=== PATIENT | male | born 1970 | race Two or more races ===

== ENCOUNTER 2020-02-21 16:53 | Inpatient (IN) | payer BC ==
[~2020-02-21] VITALS: Ht 165.1 cm; Wt 90.3 kg
[2020-02-21 16:55] VITALS: BP 144/78
[2020-02-21] MEDS: DOCUSATE SODIUM 100 MG CAPSULE PO SCH (20:30)
[2020-02-21] MEDS: ATORVASTATIN CALCIUM 40 MG TABLET PO SCH (20:30)
[2020-02-21] MEDS: ChlorproMAZINE HCL 25 MG TABLET PO PRN (20:30)
[2020-02-21] MEDS: BACLOFEN 10 MG TABLET PO SCH (20:30)
[2020-02-21] MEDS: SENNA 187 MG TABLET PO SCH (20:30)
[2020-02-21] MEDS: ENOXAPARIN SODIUM 30 MG/0.3 ML PF SYRINGE SQ SCH (20:32)
[2020-02-21] MEDS: ACETAMINOPHEN 325 MG TABLET PO PRN (22:29)
[2020-02-21] MEDS: MELATONIN 5 MG TABLET PO PRN (22:34)
[2020-02-22] VITALS: BP 140/82
[2020-02-22] MEDS: ACETAMINOPHEN 325 MG TABLET PO PRN ×2 (05:29→20:09)
[2020-02-22] MEDS: FAMOTIDINE 20 MG TABLET PO SCH ×2 (05:29→16:16)
[2020-02-22 07:12] LABS: BASOPHILS % (AUTO) 0.5 % (0.0-2.0); EOSINOPHILS % (AUTO) 2.1 % (1.0-6.0); HEMATOCRIT 39.9 % (41-53); HEMOGLOBIN 13.6 g/dL (13.5-17.5); LYMPHOCYTES # (AUTO) 2.5 K/uL (1.0-4.8); LYMPHOCYTES % (AUTO) 21.7 % (22.0-44.0); MEAN CORPUSCULAR HEMOGLOBIN 30.6 pg (26.0-34.0); MEAN CORPUSCULAR HGB CONC 34.2 G/dL (31.0-37.0); MEAN CORPUSCULAR VOLUME 90 fL (80-100); MONOCYTES # (AUTO) 0.9 K/uL (0.1-1.0); MONOCYTES % (AUTO) 7.5 % (2.0-9.0); NEUTROPHILS # (AUTO) 7.7 K/uL (1.8-7.7); NEUTROPHILS % (AUTO) 68.2 % (40.0-70.0); PLATELET COUNT (AUTO) 232 K/uL (150-450); RED BLOOD CELL COUNT(AUTO) 4.45 MIL/uL (4.50-5.90); RED CELL DISTRIBUTION WIDTH 13.2 % (11.5-14.5)
[2020-02-22 07:20] VITALS: BP 132/80
[2020-02-22 07:49] LABS: ALANINE AMINOTRANSFERASE 71 U/L (12-78); ALBUMIN 3.1 g/dL (3.4-5.0); ALKALINE PHOSPHATASE 78 U/L (46-116); ANION GAP 10 mmol/L (8-16); ASPARTATE AMINOTRANSFERASE 29 U/L (15-37); BILIRUBIN,TOTAL 0.3 mg/dL (0.1-1.0); CALCIUM, TOTAL 8.4 mg/dL (8.8-10.5); CARBON DIOXIDE 29 mmol/L (22-29); CHLORIDE 101 mmol/L (98-107); CREATININE 0.68 mg/dL (0.60-1.30); GLOMERULAR FILTR. RATE CALC > 60 mL/min (>60); GLUCOSE,RANDOM 110 mg/dL (70-110); POTASSIUM 3.7 mmol/L (3.5-5.1); SODIUM SERUM 140 mmol/L (136-145); UREA NITROGEN, BLOOD 13 mg/dL (7-18)
[2020-02-22] MEDS: ASPIRIN 325 MG TABLET PO SCH (08:09)
[2020-02-22] MEDS: BACLOFEN 10 MG TABLET PO SCH ×3 (08:09→20:09)
[2020-02-22] MEDS: DOCUSATE SODIUM 100 MG CAPSULE PO SCH ×2 (08:09→20:09)
[2020-02-22] MEDS: ENOXAPARIN SODIUM 30 MG/0.3 ML PF SYRINGE SQ SCH ×2 (08:10→20:09)
[2020-02-22] MEDS: ChlorproMAZINE HCL 25 MG TABLET PO PRN ×2 (10:30→19:00)
[2020-02-22 16:00] VITALS: BP 162/92
[2020-02-22] MEDS: LOSARTAN POTASSIUM 50 MG TABLET PO SCH (16:48)
[2020-02-22 19:06] VITALS: BP 147/77
[2020-02-22] MEDS: SENNA 187 MG TABLET PO SCH (20:09)
[2020-02-22] MEDS: ATORVASTATIN CALCIUM 40 MG TABLET PO SCH (20:09)
[2020-02-22 20:10] VITALS: BP 148/78
[2020-02-23 01:10] VITALS: BP 139/71
[2020-02-23] MEDS: ACETAMINOPHEN 325 MG TABLET PO PRN ×2 (01:10→16:53)
[2020-02-23] MEDS: FAMOTIDINE 20 MG TABLET PO SCH ×2 (06:18→16:49)
[2020-02-23] MEDS: BACLOFEN 10 MG TABLET PO SCH ×3 (07:44→20:18)
[2020-02-23] MEDS: ENOXAPARIN SODIUM 30 MG/0.3 ML PF SYRINGE SQ SCH ×2 (07:44→20:17)
[2020-02-23] MEDS: LOSARTAN POTASSIUM 50 MG TABLET PO SCH (07:44)
[2020-02-23] MEDS: DOCUSATE SODIUM 100 MG CAPSULE PO SCH ×2 (07:44→20:17)
[2020-02-23] MEDS: POLYETHYLENE GLYCOL 3350 17 GM PACKET PO SCH (07:44)
[2020-02-23] MEDS: ASPIRIN 325 MG TABLET PO SCH (07:44)
[2020-02-23 08:02] VITALS: BP 136/84
[2020-02-23 16:00] VITALS: BP 149/86
[2020-02-23] MEDS: MELATONIN 5 MG TABLET PO PRN (20:17)
[2020-02-23] MEDS: ATORVASTATIN CALCIUM 40 MG TABLET PO SCH (20:17)
[2020-02-23] MEDS: SENNA 187 MG TABLET PO SCH (20:17)
[2020-02-24 00:23] VITALS: BP 156/87
[2020-02-24] MEDS: ACETAMINOPHEN 325 MG TABLET PO PRN ×2 (00:23→20:34)
[2020-02-24] MEDS: FAMOTIDINE 20 MG TABLET PO SCH ×2 (05:38→16:45)
[2020-02-24 08:00] VITALS: BP 132/79
[2020-02-24] MEDS: ASPIRIN 325 MG TABLET PO SCH (08:33)
[2020-02-24] MEDS: LOSARTAN POTASSIUM 50 MG TABLET PO SCH (08:33)
[2020-02-24] MEDS: DOCUSATE SODIUM 100 MG CAPSULE PO SCH ×2 (08:33→20:31)
[2020-02-24] MEDS: POLYETHYLENE GLYCOL 3350 17 GM PACKET PO SCH (08:33)
[2020-02-24] MEDS: BACLOFEN 10 MG TABLET PO SCH ×3 (08:33→20:31)
[2020-02-24] MEDS: ENOXAPARIN SODIUM 30 MG/0.3 ML PF SYRINGE SQ SCH ×2 (08:35→20:31)
[2020-02-24 15:23] VITALS: BP 149/80
[2020-02-24] MEDS: ChlorproMAZINE HCL 25 MG TABLET PO PRN (18:29)
[2020-02-24] MEDS: SENNA 187 MG TABLET PO SCH (20:31)
[2020-02-24] MEDS: MELATONIN 5 MG TABLET PO PRN (20:31)
[2020-02-24] MEDS: ATORVASTATIN CALCIUM 40 MG TABLET PO SCH (20:31)
[2020-02-25 00:40] VITALS: BP 139/89
[2020-02-25] MEDS: ChlorproMAZINE HCL 25 MG TABLET PO PRN ×2 (00:40→07:13)
[2020-02-25] MEDS: ACETAMINOPHEN 325 MG TABLET PO PRN ×3 (00:40→20:40)
[2020-02-25] MEDS: FAMOTIDINE 20 MG TABLET PO SCH ×2 (05:56→16:10)
[2020-02-25 07:19] VITALS: BP 149/89
[2020-02-25] MEDS: ASPIRIN 325 MG TABLET PO SCH (07:59)
[2020-02-25] MEDS: DOCUSATE SODIUM 100 MG CAPSULE PO SCH ×2 (08:00→20:40)
[2020-02-25] MEDS: BACLOFEN 10 MG TABLET PO SCH ×3 (08:00→20:43)
[2020-02-25] MEDS: ENOXAPARIN SODIUM 30 MG/0.3 ML PF SYRINGE SQ SCH ×2 (08:00→20:43)
[2020-02-25] MEDS: POLYETHYLENE GLYCOL 3350 17 GM PACKET PO SCH (08:00)
[2020-02-25] MEDS: LOSARTAN POTASSIUM 50 MG TABLET PO SCH (08:00)
[2020-02-25] MEDS ORDERED: DIAZEPAM 2 MG TABLET PO PRN (08:30)
[2020-02-25 16:14] VITALS: BP 128/73
[2020-02-25] MEDS: MELATONIN 5 MG TABLET PO PRN (20:40)
[2020-02-25] MEDS: SENNA 187 MG TABLET PO SCH (20:40)
[2020-02-25] MEDS: ATORVASTATIN CALCIUM 40 MG TABLET PO SCH (20:40)
[2020-02-26 00:58] VITALS: BP 136/86
[2020-02-26] MEDS: ChlorproMAZINE HCL 25 MG TABLET PO PRN ×3 (02:53→21:49)
[2020-02-26] MEDS: ACETAMINOPHEN 325 MG TABLET PO PRN ×2 (02:53→21:49)
[2020-02-26] MEDS: FAMOTIDINE 20 MG TABLET PO SCH ×2 (05:55→16:17)
[2020-02-26] MEDS: POLYETHYLENE GLYCOL 3350 17 GM PACKET PO SCH (09:00)
[2020-02-26] MEDS: BACLOFEN 10 MG TABLET PO SCH ×3 (09:19→20:18)
[2020-02-26] MEDS: ENOXAPARIN SODIUM 30 MG/0.3 ML PF SYRINGE SQ SCH ×2 (09:19→20:18)
[2020-02-26] MEDS: DOCUSATE SODIUM 100 MG CAPSULE PO SCH ×2 (09:19→20:18)
[2020-02-26] MEDS: LOSARTAN POTASSIUM 50 MG TABLET PO SCH (09:19)
[2020-02-26] MEDS: ASPIRIN 325 MG TABLET PO SCH (09:19)
[2020-02-26 09:32] VITALS: BP 140/89
[2020-02-26 15:06] LABS: BASOPHILS % (AUTO) 0.8 % (0.0-2.0); EOSINOPHILS % (AUTO) 1.5 % (1.0-6.0); HEMATOCRIT 41.6 % (41-53); HEMOGLOBIN 13.8 g/dL (13.5-17.5); LYMPHOCYTES # (AUTO) 2.9 K/uL (1.0-4.8); LYMPHOCYTES % (AUTO) 27.4 % (22.0-44.0); MEAN CORPUSCULAR HEMOGLOBIN 30.2 pg (26.0-34.0); MEAN CORPUSCULAR HGB CONC 33.3 G/dL (31.0-37.0); MEAN CORPUSCULAR VOLUME 91 fL (80-100); MONOCYTES # (AUTO) 0.7 K/uL (0.1-1.0); NEUTROPHILS # (AUTO) 6.7 K/uL (1.8-7.7); NEUTROPHILS % (AUTO) 63.3 % (40.0-70.0); PLATELET COUNT (AUTO) 275 K/uL (150-450); RED BLOOD CELL COUNT(AUTO) 4.58 MIL/uL (4.50-5.90); RED CELL DISTRIBUTION WIDTH 13.2 % (11.5-14.5)
[2020-02-26 15:53] LABS: ANION GAP 4 mmol/L (8-16); CALCIUM, TOTAL 9.4 mg/dL (8.8-10.5); CARBON DIOXIDE 31 mmol/L (22-29); CHLORIDE 101 mmol/L (98-107); CREATININE 0.78 mg/dL (0.60-1.30); GLOMERULAR FILTR. RATE CALC > 60 mL/min (>60); GLUCOSE,RANDOM 111 mg/dL (70-110); SODIUM SERUM 136 mmol/L (136-145); UREA NITROGEN, BLOOD 15 mg/dL (7-18)
[2020-02-26] MEDS: DIVALPROEX SODIUM 250 MG DR TABLET PO SCH ×2 (16:17→20:18)
[2020-02-26 18:10] VITALS: BP 142/82
[2020-02-26] MEDS: SENNA 187 MG TABLET PO SCH (20:18)
[2020-02-26] MEDS: MELATONIN 5 MG TABLET PO PRN (20:18)
[2020-02-26] MEDS: ATORVASTATIN CALCIUM 40 MG TABLET PO SCH (20:18)
[2020-02-27 01:00] VITALS: BP 112/69
[2020-02-27] MEDS: ACETAMINOPHEN 325 MG TABLET PO PRN ×2 (01:51→20:01)
[2020-02-27] MEDS: FAMOTIDINE 20 MG TABLET PO SCH ×2 (06:00→15:46)
[2020-02-27 08:02] VITALS: BP 131/87
[2020-02-27] MEDS: POLYETHYLENE GLYCOL 3350 17 GM PACKET PO SCH ×2 (09:00→09:34)
[2020-02-27] MEDS: DOCUSATE SODIUM 100 MG CAPSULE PO SCH ×2 (09:22→20:01)
[2020-02-27] MEDS: ChlorproMAZINE HCL 25 MG TABLET PO PRN (09:22)
[2020-02-27] MEDS: BACLOFEN 10 MG TABLET PO SCH ×3 (09:22→20:01)
[2020-02-27] MEDS: LOSARTAN POTASSIUM 50 MG TABLET PO SCH (09:22)
[2020-02-27] MEDS: ASPIRIN 325 MG TABLET PO SCH (09:22)
[2020-02-27] MEDS: ENOXAPARIN SODIUM 30 MG/0.3 ML PF SYRINGE SQ SCH ×2 (09:22→20:04)
[2020-02-27] MEDS: DIVALPROEX SODIUM 250 MG DR TABLET PO SCH (09:22)
[2020-02-27] MEDS: DIVALPROEX SODIUM 500 MG DR TABLET PO SCH ×2 (15:48→20:01)
[2020-02-27 15:50] VITALS: BP 139/84
[2020-02-27] MEDS: MELATONIN 5 MG TABLET PO PRN (20:01)
[2020-02-27] MEDS: ATORVASTATIN CALCIUM 40 MG TABLET PO SCH (20:01)
[2020-02-27] MEDS: SENNA 187 MG TABLET PO SCH (20:01)
[2020-02-28 03:00] VITALS: BP 137/76
[2020-02-28] MEDS: ChlorproMAZINE HCL 25 MG TABLET PO PRN ×2 (03:20→07:58)
[2020-02-28] MEDS: FAMOTIDINE 20 MG TABLET PO SCH ×2 (05:58→15:41)
[2020-02-28 07:58] VITALS: BP 121/91
[2020-02-28] MEDS: ENOXAPARIN SODIUM 30 MG/0.3 ML PF SYRINGE SQ SCH ×2 (07:58→20:03)
[2020-02-28] MEDS: ACETAMINOPHEN 325 MG TABLET PO PRN ×2 (07:58→18:13)
[2020-02-28] MEDS: LOSARTAN POTASSIUM 50 MG TABLET PO SCH (07:58)
[2020-02-28] MEDS: DOCUSATE SODIUM 100 MG CAPSULE PO SCH ×2 (07:58→20:03)
[2020-02-28] MEDS: DIVALPROEX SODIUM 500 MG DR TABLET PO SCH ×3 (07:59→20:03)
[2020-02-28] MEDS: BACLOFEN 10 MG TABLET PO SCH ×3 (07:59→20:03)
[2020-02-28] MEDS: ASPIRIN 325 MG TABLET PO SCH (07:59)
[2020-02-28] MEDS: POLYETHYLENE GLYCOL 3350 17 GM PACKET PO SCH (08:02)
[2020-02-28 16:00] VITALS: BP 115/67
[2020-02-28] MEDS: ATORVASTATIN CALCIUM 40 MG TABLET PO SCH (20:03)
[2020-02-28] MEDS: SENNA 187 MG TABLET PO SCH (20:03)
[2020-02-28] MEDS: MELATONIN 5 MG TABLET PO PRN (20:03)
[2020-02-29 02:30] VITALS: BP 145/85
[2020-02-29] MEDS: ACETAMINOPHEN 325 MG TABLET PO PRN ×2 (02:30→20:52)
[2020-02-29] MEDS: FAMOTIDINE 20 MG TABLET PO SCH ×2 (05:50→15:44)
[2020-02-29 07:06] VITALS: BP 157/93
[2020-02-29] MEDS: LOSARTAN POTASSIUM 50 MG TABLET PO SCH (07:55)
[2020-02-29] MEDS: DOCUSATE SODIUM 100 MG CAPSULE PO SCH ×2 (07:55→20:50)
[2020-02-29] MEDS: DIVALPROEX SODIUM 500 MG DR TABLET PO SCH ×3 (07:55→20:50)
[2020-02-29] MEDS: ASPIRIN 325 MG TABLET PO SCH (07:55)
[2020-02-29] MEDS: BACLOFEN 10 MG TABLET PO SCH ×3 (07:56→20:50)
[2020-02-29] MEDS: ENOXAPARIN SODIUM 30 MG/0.3 ML PF SYRINGE SQ SCH ×2 (07:56→20:50)
[2020-02-29] MEDS: POLYETHYLENE GLYCOL 3350 17 GM PACKET PO SCH (07:56)
[2020-02-29 10:37] VITALS: BP 147/82
[2020-02-29 15:39] VITALS: BP 147/89
[2020-02-29] MEDS: SENNA 187 MG TABLET PO SCH (20:50)
[2020-02-29] MEDS: MELATONIN 5 MG TABLET PO PRN (20:50)
[2020-02-29] MEDS: ATORVASTATIN CALCIUM 40 MG TABLET PO SCH (20:50)
[2020-03-01 00:20] VITALS: BP 141/80
[2020-03-01] MEDS: FAMOTIDINE 20 MG TABLET PO SCH ×2 (06:21→15:46)
[2020-03-01] MEDS: ACETAMINOPHEN 325 MG TABLET PO PRN (06:21)
[2020-03-01 07:25] VITALS: BP 134/87
[2020-03-01] MEDS: BACLOFEN 10 MG TABLET PO SCH ×3 (07:59→20:12)
[2020-03-01] MEDS: LOSARTAN POTASSIUM 50 MG TABLET PO SCH (07:59)
[2020-03-01] MEDS: ENOXAPARIN SODIUM 30 MG/0.3 ML PF SYRINGE SQ SCH ×2 (07:59→20:12)
[2020-03-01] MEDS: DOCUSATE SODIUM 100 MG CAPSULE PO SCH ×2 (07:59→20:12)
[2020-03-01] MEDS: POLYETHYLENE GLYCOL 3350 17 GM PACKET PO SCH ×2 (07:59→08:40)
[2020-03-01] MEDS: ASPIRIN 325 MG TABLET PO SCH (07:59)
[2020-03-01] MEDS: DIVALPROEX SODIUM 500 MG DR TABLET PO SCH ×3 (07:59→20:12)
[2020-03-01 15:41] VITALS: BP 135/84
[2020-03-01] MEDS: ATORVASTATIN CALCIUM 40 MG TABLET PO SCH (20:11)
[2020-03-01] MEDS: MELATONIN 5 MG TABLET PO PRN (20:12)
[2020-03-01] MEDS: SENNA 187 MG TABLET PO SCH (20:12)
[2020-03-02 04:00] VITALS: BP 146/87
[2020-03-02] MEDS: FAMOTIDINE 20 MG TABLET PO SCH ×2 (05:55→15:39)
[2020-03-02 07:34] VITALS: BP 130/83
[2020-03-02] MEDS: LOSARTAN POTASSIUM 50 MG TABLET PO SCH (07:51)
[2020-03-02] MEDS: DOCUSATE SODIUM 100 MG CAPSULE PO SCH ×2 (07:51→20:22)
[2020-03-02] MEDS: ASPIRIN 325 MG TABLET PO SCH (07:51)
[2020-03-02] MEDS: DIVALPROEX SODIUM 500 MG DR TABLET PO SCH ×3 (07:51→20:22)
[2020-03-02] MEDS: ENOXAPARIN SODIUM 30 MG/0.3 ML PF SYRINGE SQ SCH ×2 (07:51→20:24)
[2020-03-02] MEDS: BACLOFEN 10 MG TABLET PO SCH ×3 (07:51→20:22)
[2020-03-02] MEDS: POLYETHYLENE GLYCOL 3350 17 GM PACKET PO SCH (07:52)
[2020-03-02 15:59] VITALS: BP 144/81
[2020-03-02 16:27] VITALS: BP 144/41
[2020-03-02] MEDS: ATORVASTATIN CALCIUM 40 MG TABLET PO SCH (20:22)
[2020-03-02] MEDS: SENNA 187 MG TABLET PO SCH (20:22)
[2020-03-03 03:52] VITALS: BP 122/92
[2020-03-03] MEDS: ACETAMINOPHEN 325 MG TABLET PO PRN ×2 (03:52→20:19)
[2020-03-03] MEDS: FAMOTIDINE 20 MG TABLET PO SCH ×2 (05:42→15:36)
[2020-03-03 07:46] VITALS: BP 117/78
[2020-03-03] MEDS: DIVALPROEX SODIUM 500 MG DR TABLET PO SCH ×3 (08:07→20:18)
[2020-03-03] MEDS: LOSARTAN POTASSIUM 50 MG TABLET PO SCH (08:07)
[2020-03-03] MEDS: ASPIRIN 325 MG TABLET PO SCH (08:08)
[2020-03-03] MEDS: ENOXAPARIN SODIUM 30 MG/0.3 ML PF SYRINGE SQ SCH ×2 (08:08→20:19)
[2020-03-03] MEDS: BACLOFEN 10 MG TABLET PO SCH ×3 (08:08→20:18)
[2020-03-03] MEDS: POLYETHYLENE GLYCOL 3350 17 GM PACKET PO SCH (08:09)
[2020-03-03] MEDS: DOCUSATE SODIUM 100 MG CAPSULE PO SCH ×2 (08:09→20:17)
[2020-03-03] MEDS: COLD CREAM, SKIN EMOLLIENT 170 GM JAR TP SCH ×2 (08:53→20:20)
[2020-03-03 16:11] VITALS: BP 144/91
[2020-03-03] MEDS: MELATONIN 5 MG TABLET PO PRN (20:18)
[2020-03-03] MEDS: ATORVASTATIN CALCIUM 40 MG TABLET PO SCH (20:18)
[2020-03-03] MEDS: SENNA 187 MG TABLET PO SCH (20:18)
[2020-03-04 04:35] VITALS: BP 115/64
[2020-03-04] MEDS: ACETAMINOPHEN 325 MG TABLET PO PRN ×2 (04:35→20:31)
[2020-03-04] MEDS: FAMOTIDINE 20 MG TABLET PO SCH ×2 (05:54→16:16)
[2020-03-04 08:02] VITALS: BP 135/84
[2020-03-04] MEDS: BACLOFEN 10 MG TABLET PO SCH (08:23)
[2020-03-04] MEDS: DIVALPROEX SODIUM 500 MG DR TABLET PO SCH ×3 (08:23→20:27)
[2020-03-04] MEDS: DOCUSATE SODIUM 100 MG CAPSULE PO SCH (08:23)
[2020-03-04] MEDS: ENOXAPARIN SODIUM 30 MG/0.3 ML PF SYRINGE SQ SCH (08:23)
[2020-03-04] MEDS: ASPIRIN 325 MG TABLET PO SCH (08:23)
[2020-03-04] MEDS: LOSARTAN POTASSIUM 50 MG TABLET PO SCH (08:23)
[2020-03-04] MEDS: POLYETHYLENE GLYCOL 3350 17 GM PACKET PO SCH (09:00)
[2020-03-04] MEDS: COLD CREAM, SKIN EMOLLIENT 170 GM JAR TP SCH ×2 (09:00→20:29)
[2020-03-04 16:41] VITALS: BP 140/95
[2020-03-04] MEDS ORDERED: LOSA50TA37 PO (19:53)
[2020-03-04] MEDS ORDERED: FAMO20 PO (19:53)
[2020-03-04] MEDS ORDERED: ATOR40TA28 PO (19:53)
[2020-03-04] MEDS ORDERED: DIVA-112 PO (19:53)
[2020-03-04] MEDS ORDERED: DOCU-275 PO (19:53)
[2020-03-04] MEDS ORDERED: ASPI-989 PO (19:53)
[2020-03-04] MEDS: ATORVASTATIN CALCIUM 40 MG TABLET PO SCH (20:27)
[2020-03-04] MEDS: ENOXAPARIN SODIUM 40 MG/0.4 ML PF SYRINGE SQ SCH (20:28)
[2020-03-04] MEDS: MELATONIN 5 MG TABLET PO PRN (20:31)
[2020-03-05 03:50] VITALS: BP 130/80
[2020-03-05] MEDS: ACETAMINOPHEN 325 MG TABLET PO PRN (03:51)
[2020-03-05] MEDS: FAMOTIDINE 20 MG TABLET PO SCH (06:01)
[2020-03-05 07:48] VITALS: BP 134/98
[2020-03-05] MEDS: ENOXAPARIN SODIUM 40 MG/0.4 ML PF SYRINGE SQ SCH (07:57)
[2020-03-05] MEDS: ASPIRIN 325 MG TABLET PO SCH (07:57)
[2020-03-05] MEDS: DIVALPROEX SODIUM 500 MG DR TABLET PO SCH (07:58)
[2020-03-05] MEDS: LOSARTAN POTASSIUM 50 MG TABLET PO SCH (07:58)
[2020-03-05] MEDS: COLD CREAM, SKIN EMOLLIENT 170 GM JAR TP SCH (07:58)
[2020-03-05 10:00] VITALS: BP 131/83
== END 2020-03-05 12:10 | disposition home health service (06) | DRG 56 ==
LOC: 2WR 16:53
PROVIDERS: ADMIT Physical Medicine & Rehabilitation; ATTEND Physical Medicine & Rehabilitation
DX: I69.351 Hemiplegia and hemiparesis following cerebral infarction affecting right dominant side (principal); I63.341 Cerebral infarction due to thrombosis of right cerebellar artery; E78.5 Hyperlipidemia, unspecified; I10 Essential (primary) hypertension; R27.0 Ataxia, unspecified; D72.829 Elevated white blood cell count, unspecified; E11.9 Type 2 diabetes mellitus without complications; E78.00 Pure hypercholesterolemia, unspecified; G31.84 Mild cognitive impairment of uncertain or unknown etiology; G47.00 Insomnia, unspecified; K21.9 Gastro-esophageal reflux disease without esophagitis; R13.10 Dysphagia, unspecified
CPT/HCPCS: 87081; 92507; 92523; 97110; 97112; 97116; 97150; 97163; 97166; 97530; 97535; 99366; A9575; J1650